=== PATIENT | male | born 1995 | race Two or more races ===

== ENCOUNTER 2018-06-08 17:01 | Inpatient (IN) | payer BC, MEDICAID ==
[~2018-06-08] VITALS: Ht 177.8 cm; Wt 63.4 kg
[2018-06-08 18:22] LABS: Basophils # (auto) 0 uL; Basophils % (auto) 0.5 % (0.0-2.0); Eosinophils # (auto) 0 uL; Eosinophils % (auto) 0.1 % (0.0-7.0); Hematocrit 45.1 % (41.0-53.0); Hemoglobin 14.8 g/dL (13.5-17.5); Lymphocytes # (auto) 1.2 uL; Lymphocytes % (auto) 15.3 % (10.0-50.0); Mean Corpuscular Hemoglobin 30.8 pg (28.0-32.0); Mean Corpuscular Hgb Conc. 32.8 g/dL (32.0-36.0); Mean Corpuscular Volume 93.9 fL (80.0-100.0); Monocytes # (auto) 0.4 uL; Monocytes % (auto) 5.5 % (0.0-12.0); Neutrophils # (auto) 6.4 uL; Neutrophils % (auto) 78.6 % (37.0-80.0); Nucleated Red Blood Cells % 0.1 %; Platelet Count (auto) 273 10^3/uL (140-450); Red Cell Distribution Width 13.4 % (11.8-14.3); White Blood Cell 8.1 10^3/uL (4.4-10.8)
[2018-06-08 18:48] LABS: Albumin 3.9 g/dL (3.4-5.0); Calcium 9.4 mg/dL (8.5-10.1); Potassium 4.3 mmol/L (3.5-5.1)
[2018-06-08 18:51] LABS: BUN/Creatinine Ratio 23.4; Bilirubin, Total 0.5 mg/dL (0.2-1.0); Total Protein 7.5 g/dL (6.4-8.2)
[2018-06-08] MEDS: SODIUM CHLORIDE 0.9% 1,000 ML IV SCH ×2 (21:11→23:11)
[2018-06-08] MEDS ORDERED: InsuLIN R (HUMAN) 100 UNITS in SODIUM CHL 0.9% 99 ML IV SCH (21:11)
[2018-06-08] MEDS ORDERED: DEXTROSE (50%) 50ML SYRG IV PRN (21:15)
[2018-06-08] MEDS ORDERED: POTASSIUM CHL 20MEQ/100ML 200 ML IV PRN (21:15)
[2018-06-08] MEDS ORDERED: InsuLIN REG 1unit/0.01ml Soln (100units/ml) ONE (21:45)
[2018-06-08 22:04] LABS: Basophils # (auto) 0 uL; Basophils % (auto) 0.2 % (0.0-2.0); Eosinophils # (auto) 0 uL; Hematocrit 45.7 % (41.0-53.0); Hemoglobin 15.3 g/dL (13.5-17.5); Lymphocytes # (auto) 1.4 uL; Lymphocytes % (auto) 16.3 % (10.0-50.0); Mean Corpuscular Hemoglobin 30.8 pg (28.0-32.0); Mean Corpuscular Hgb Conc. 33.4 g/dL (32.0-36.0); Mean Corpuscular Volume 92.1 fL (80.0-100.0); Monocytes # (auto) 0.8 uL; Monocytes % (auto) 9.1 % (0.0-12.0); Neutrophils # (auto) 6.4 uL; Neutrophils % (auto) 74.4 % (37.0-80.0); Nucleated Red Blood Cells % 0.1 %; Platelet Count (auto) 275 10^3/uL (140-450); Red Blood Cells 4.97 10^6/uL (4.5-5.90); Red Cell Distribution Width 13.3 % (11.8-14.3); White Blood Cell 8.6 10^3/uL (4.4-10.8)
[2018-06-08] MEDS: ACCU-CHEK COMFORT CURVE STRIP VI SCH ×2 (22:17→23:54)
[2018-06-08 22:21] LABS: BUN/Creatinine Ratio 28.2; Magnesium 2.1 mg/dL (1.6-2.6); Phosphorus 4.3 mg/dL (2.5-4.90); Potassium 4.2 mmol/L (3.5-5.1)
[2018-06-08 23:06] LABS: Urine Bacteria FEW /hpf (None Seen); Urine Blood Negative /uL (Negative); Urine Specific Gravity 1.019 (1.001-1.035); Urine WBC 15 /hpf (0 - 3)
[2018-06-09] MEDS: D5W/SOD CHLO 0.9% 1,000 ML IV SCH ×5 (00:15→17:43)
[2018-06-09] MEDS ORDERED: DEXTROSE (50%) 50ML SYRG IV PRN (00:15)
[2018-06-09] MEDS ORDERED: ONDANSETRON HCL 4 MG/2 ML VIAL IV PRN (02:15)
[2018-06-09] MEDS ORDERED: ACETAMINOPHEN 500 MG TAB PO PRN (02:15)
[2018-06-09] MEDS ORDERED: ELECTROLYTE 1000ML ORAL SOLN PO ONE (03:15)
[2018-06-09] MEDS: ACCU-CHEK COMFORT CURVE STRIP VI SCH ×5 (03:53→20:29)
[2018-06-09] MEDS: InsuLIN REG 1unit/0.01ml Soln (100units/ml) SC SCH ×5 (04:00→20:28)
[2018-06-09 07:48] LABS: BUN/Creatinine Ratio 28.1; Calcium 8.8 mg/dL (8.5-10.1); Potassium 4.4 mmol/L (3.5-5.1)
[2018-06-09] MEDS: cefTRIAXone 1GM/50ML D5W 50 ML IV SCH (08:31)
[2018-06-09 10:11] LABS: BUN/Creatinine Ratio 23.2; Potassium 3.8 mmol/L (3.5-5.1)
[2018-06-09 15:42] LABS: BUN/Creatinine Ratio 19.8; Calcium 8.4 mg/dL (8.5-10.1)
--- NOTE | 2018-06-09 18:45 | NUR ---
MS admit from [facility] admitted to [facility] after SBAR received. Patient oriented to COLE MCNEAL, primary RN, unit, room, bed, and unit policies regarding patient care and visiting hours. Patient is alert and awake with even and unlabored respirations. No S/S of distress/SOB or pain at this time. Bed is in lowest position, wheels are locked, side rails up x2, and call light is within reach. Patient weighed by bed scale and encouraged to call if they need something. All questions and concerns addressed, patient verbalized understanding.
--- NOTE | 2018-06-09 18:58 | NUR ---
Patient out to smoke ABBY GIBBS states they want to leave the floor Against Medical Advice (AMA) to go outside and smoke. Patient encouraged to stay on floor and not smoke. FRANSISCO morrison notified of patient's wishes. Patient advised of the risks and benefits of leaving AMA to smoke. Patient verbalized understanding and signed required AMA form.
[2018-06-09 18:59] VITALS: BP 137/85
--- NOTE | 2018-06-09 19:20 | NUR ---
Closing Note Patient currently ama to smoke. No S/S of distress/SOB or pain. Care endorsed to Kathi MALIK.
[2018-06-09] MEDS ORDERED: INSDRIP IV (20:47)
[2018-06-09] MEDS ORDERED: INSLANTI SC (20:47)
[2018-06-09 22:00] VITALS: BP 149/92
[2018-06-10] MEDS: ACCU-CHEK COMFORT CURVE STRIP VI SCH ×4 (00:46→12:11)
[2018-06-10] MEDS: InsuLIN REG 1unit/0.01ml Soln (100units/ml) SC SCH ×4 (00:46→12:09)
[2018-06-10 05:00] VITALS: BP 142/86
--- NOTE | 2018-06-10 07:45 | NUR ---
Opening Shift Note Assumed care of patient, Patient awake and alert sitting up quietly in bed. Patient is on room air with even and unlabored respirations. No S/S of distress/SOB or pain noted at this time. Bed is in lowest position, wheels are locked, side rails up x2, and call light is within reach. Patient updated on POC and encouraged to call for assistance as needed. Will continue to monitor for changes Q1hr and PRN.
[2018-06-10 08:00] VITALS: BP 142/86
--- NOTE | 2018-06-10 08:10 | NUR ---
Patient outside to smoke ABBY GIBBS states they want to leave the floor Against Medical Advice (AMA) to go outside and smoke. Patient encouraged to stay on floor and not smoke. FRANSISCO Smith previously notified of patient's wishes. Patient advised of the risks and benefits of leaving AMA. Patient verbalized understanding and signed required AMA form.
[2018-06-10 09:00] VITALS: BP 140/85
[2018-06-10] MEDS: cefTRIAXone 1GM/50ML D5W 50 ML IV SCH (09:18)
--- NOTE | 2018-06-10 12:00 | NUR ---
ELEVATED BLOOD PRESSURE BLOOD PRESSURE ELEVATED AT 160/91 HR 109. PATIENT ASYMPTOMATIC. ZAFAR MENON INFORMED AND STATED WILL LOOK INTO IT. WILL REASSESS BLOOD PRESSURE. PATIENT ASKING TO GO DOWN TO SMOKE. ADVISED PATIENT NOT TO BLOOD PRESSURE IS ELEVATED AND SMOKING WILL RAISE IT EVEN MORE. WILL CONTINUE TO MONITOR.
[2018-06-10 12:30] VITALS: BP 166/102
[2018-06-10 13:09] VITALS: BP 170/100
--- NOTE | 2018-06-10 13:09 | NUR ---
BLOOD PRESSURE REASSESS RECHECKED BLOOD PRESSURE, STILL REMAINS ELEVATED AT 170/100 HR 111. ZAFAR MENON INFORMED AGAIN. RECEIVED TELEPHONE ORDER FOR CLONIDINE 0.2 MG PO ONCE NOW. ORDERS CARRIED OUT. PATIENT ALSO EXPRESSING SOME CONCERNS ABOUT WANTING TO LEAVE AGAINST MEDICAL ADVISE. PATIENT STRONGLY DISCOURAGED D/T ELEVATED BLOOD PRESSURE AND EDUCATED RE: RISKS OF LEAVING AGAINST MEDICAL ADVISE. PATIENT STATING HE WILL WAIT A LITTLE BIT. WILL CONTINUE TO MONITOR.
--- NOTE | 2018-06-10 13:30 | NUR ---
PATIENT REFUSING BLOOD PRESSURE MEDICATION PATIENT REFUSING BLOOD PRESSURE MEDICATION HE STATED HE DOESNT WANT TO STAY THAT LONG TO GET IT RECHECKED. CONTINUED TO EDUCATE PATIENT RE: THE RISKS OF HIGH BLOOD PRESSURE WHICH ARE NOT LIMITED TO STROKE, COMA, OR . PATIENT VERBALIZED UNDERSTANDING AND STILL EXPRESSING WHICH TO LEAVE AMA. WILL DISCUSS WITH MD AND HAVE PATIENT SIGN. WILL CONTINUE TO MONITOR.
--- NOTE | 2018-06-10 13:40 | NUR ---
AMA Note [facility]BBY GIBBS states they want to leave the hospital Against Medical Advice (AMA). Patient encouraged to stay for further treatment/stabilization. DR. Mejía notified of patient's wishes. Patient advised of the risks and benefits of leaving AMA which can include stroke, coma or . Patient verbalized understanding. Patient encouraged to return to the ER if symptoms do not improve or worsen.
== END 2018-06-10 14:10 | disposition left against medical advice (07) | DRG 689 ==
LOC: ER 17:07 → TELE-EAST 06-09 19:36
PROVIDERS: ADMIT Nurse Practitioner Family; ATTEND Family Medicine
DX: N39.0 Urinary tract infection, site not specified (principal); E10.10 Type 1 diabetes mellitus with ketoacidosis without coma; F17.210 Nicotine dependence, cigarettes, uncomplicated; E86.0 Dehydration; Z53.21 Procedure and treatment not carried out due to patient leaving prior to being seen by health care provider; Z79.4 Long term (current) use of insulin
CPT/HCPCS: 36415; 36600; 71045; 80048; 80053; 81001; 82010; 82805; 82962; 83036; 83735; 83930; 84100; 85025; 87086; 93005; 96361; 96365; 96372; G0378; J0696; J1815; J7042

== ENCOUNTER 2020-02-29 19:28 | Emergency (ER) | payer BC, MEDICAID ==
[~2020-02-29] VITALS: Ht 170.2 cm; Wt 61.2 kg
[~2020-02-29 19:28] MED LIST: INSDRIP IV; INSLANTI SC
[2020-02-29 19:31] VITALS: BP 103/72
== END 2020-02-29 23:30 | disposition left against medical advice (07) ==
LOC: ER 19:28
DX: R07.89 Other chest pain (principal); Z53.21 Procedure and treatment not carried out due to patient leaving prior to being seen by health care provider
CPT/HCPCS: 71045; 82010; 82962; 84484

== ENCOUNTER 2020-11-28 16:12 | Inpatient (IN) | payer BC, MEDICAID ==
[~2020-11-28] VITALS: Ht 170.2 cm; Wt 71.0 kg
[2020-11-28] MEDS ORDERED: DEXTROSE (50%) 50ML SYRG IV PRN (16:30)
[2020-11-28] MEDS ORDERED: INSULIN LANTUS (GLARGINE) 1 /0.01ml (100units/ml) SC ONE (16:30)
[2020-11-28] MEDS ORDERED: ONDANSETRON HCL 4 MG/2 ML VIAL IV ONE (16:30)
[2020-11-28 16:58] LABS: Basophils # (auto) 0.2 10 ^3/uL (0-0.2); Eosinophils # (auto) 0 10 ^3/uL (0-0.8); Hemoglobin 9.4 g/dL (13.5-17.5); Mean Corpuscular Hemoglobin 27.6 pg (28.0-32.0)
[2020-11-28 17:00] LABS: Basophils % (auto) 0.8 % (0.0-2.0); Hematocrit 28.2 % (41.0-53.0); Lymphocytes # (auto) 2.2 10 ^3/uL (0.4-5.4); Lymphocytes % (auto) 10.1 % (10.0-50.0); Mean Corpuscular Hgb Conc. 33.2 g/dL (32.0-36.0); Mean Corpuscular Volume 83.3 fL (80.0-100.0); Monocytes # (auto) 1.5 10 ^3/uL (0-1.3); Monocytes % (auto) 7.1 % (0.0-12.0); Neutrophils # (auto) 17.4 10 ^3/uL (1.6-8.6); Red Blood Cells 3.39 10^6/uL (4.5-5.90); Red Cell Distribution Width 14.1 % (11.8-14.3); White Blood Cell 21.3 10^3/uL (4.4-10.8)
[2020-11-28 17:15] LABS: BUN/Creatinine Ratio 17.2; Calcium 8.7 mg/dL (8.5-10.1); Phosphorus 2.6 mg/dL (2.5-4.90); Potassium 4.6 mmol/L (3.5-5.1)
[2020-11-28] MEDS: SODIUM CHLORIDE 0.9% 1,000 ML IV SCH ×3 (17:30→22:30)
[2020-11-28] MEDS: ACCU-CHEK COMFORT CURVE STRIP VI SCH ×5 (18:42→22:30)
[2020-11-28] MEDS ORDERED: ACETAMINOPHEN 650 mg PER 20.3 mL UD PO ONE (19:00)
[2020-11-28] MEDS: InsuLIN R (HUMAN) 100 UNITS in SODIUM CHL 0.9% 99 ML IV SCH ×2 (20:17→21:00)
[2020-11-28] MEDS ORDERED: SODIUM CHLORIDE 0.9% 1,000 ML IV SCH (20:30)
[2020-11-28] MEDS ORDERED: ONDANSETRON HCL 4 MG/2 ML VIAL IV PRN (22:45)
[2020-11-28] MEDS ORDERED: MORPHINE SULFATE INJECTION 2 MG/ML SYRG IV PRN (22:45)
[2020-11-28] MEDS ORDERED: NITROGLYCERIN 0.4 MG SL TAB SL PRN (22:45)
[2020-11-29] MEDS: ACCU-CHEK COMFORT CURVE STRIP VI SCH ×11 (00:18→21:52)
[2020-11-29 01:34] LABS: Amphetamine Screen, Urine NEGATIVE (NEGATIVE); Barbiturate Scree,Urine NEGATIVE (NEGATIVE); Benzodiazephine Screen, Urine NEGATIVE (NEGATIVE); Cannabinoid Screen, Urine POSITIVE (NEGATIVE); Cocaine Screen, Urine NEGATIVE (NEGATIVE); Opiate Scree,Urine NEGATIVE (NEGATIVE); Phencyclidine Screen, Urine NEGATIVE (NEGATIVE)
[2020-11-29 01:39] LABS: Urine Bacteria FEW /hpf (None Seen); Urine Blood 1+ /uL (Negative); Urine Mucus FEW (None Seen); Urine WBC 69 /hpf (0 - 3); Urine WBC Clumps PRESENT /hpf (None Seen)
[2020-11-29] MEDS: SODIUM CHLORIDE 0.9% 1,000 ML IV SCH ×3 (05:10→21:07)
[2020-11-29 07:55] LABS: Basophils # (auto) 0.1 10 ^3/uL (0-0.2); Eosinophils # (auto) 0 10 ^3/uL (0-0.8); Lymphocytes # (auto) 1.3 10 ^3/uL (0.4-5.4); Mean Corpuscular Hgb Conc. 32.7 g/dL (32.0-36.0); Monocytes # (auto) 1.3 10 ^3/uL (0-1.3); Neutrophils # (auto) 15.6 10 ^3/uL (1.6-8.6); White Blood Cell 18.3 10^3/uL (4.4-10.8)
[2020-11-29 07:57] LABS: Basophils % (auto) 0.6 % (0.0-2.0); Hematocrit 29.4 % (41.0-53.0); Hemoglobin 9.6 g/dL (13.5-17.5); Lymphocytes % (auto) 7.1 % (10.0-50.0); Mean Corpuscular Hemoglobin 27.3 pg (28.0-32.0); Mean Corpuscular Volume 83.5 fL (80.0-100.0); Monocytes % (auto) 7.1 % (0.0-12.0); Neutrophils % (auto) 85.2 % (37.0-80.0); Red Blood Cells 3.52 10^6/uL (4.5-5.90); Red Cell Distribution Width 14.3 % (11.8-14.3)
[2020-11-29 08:15] LABS: Calcium 8.4 mg/dL (8.5-10.1); Potassium 4.4 mmol/L (3.5-5.1)
[2020-11-29 08:19] LABS: Bilirubin, Total 0.3 mg/dL (0.2-1.0); Total Protein 7.2 g/dL (6.4-8.2)
[2020-11-29] MEDS ORDERED: DEXTROSE (50%) 50ML SYRG IV PRN (09:30)
[2020-11-29] MEDS ORDERED: INSULIN LANTUS (GLARGINE) 1 /0.01ml (100units/ml) SC SCH (10:00)
[2020-11-29] MEDS ORDERED: PANTOPRAZOLE 40 MG/10 ML VIAL INJ IV SCH (10:00)
[2020-11-29] MEDS: levoFLOXacin 500MG 100 ML IV SCH (11:23)
[2020-11-29] MEDS: InsuLIN REG 1unit/0.01ml Soln (100units/ml) SC SCH ×2 (11:34→16:29)
[2020-11-29] MEDS: metroNIDAZOLE 500MG/100ML 100 ML IV SCH ×2 (12:31→20:06)
[2020-11-29 17:00] VITALS: BP 108/65
[2020-11-29] MEDS: SUCRALFATE 1 GM/10 ML ORAL SUSP PO SCH ×2 (17:43→21:08)
[2020-11-29] MEDS: PANTOPRAZOLE 40 MG/10 ML VIAL INJ IV SCH (21:08)
[2020-11-29 22:00] VITALS: BP 94/71
[2020-11-29] MEDS ORDERED: InsuLIN REG 1unit/0.01ml Soln (100units/ml) SC SCH (22:00)
[2020-11-30] MEDS: metroNIDAZOLE 500MG/100ML 100 ML IV SCH ×2 (04:07→12:24)
[2020-11-30 05:00] VITALS: BP 152/90
[2020-11-30 06:36] LABS: Basophils # (auto) 0 10 ^3/uL (0-0.2); Basophils % (auto) 0.4 % (0.0-2.0); Eosinophils # (auto) 0.1 10 ^3/uL (0-0.8); Eosinophils % (auto) 0.8 % (0.0-7.0); Hematocrit 25.9 % (41.0-53.0); Hemoglobin 8.6 g/dL (13.5-17.5); Lymphocytes # (auto) 1.7 10 ^3/uL (0.4-5.4); Lymphocytes % (auto) 17.3 % (10.0-50.0); Mean Corpuscular Hgb Conc. 33.2 g/dL (32.0-36.0); Mean Corpuscular Volume 84.3 fL (80.0-100.0); Monocytes # (auto) 1.2 10 ^3/uL (0-1.3); Monocytes % (auto) 12.4 % (0.0-12.0); Neutrophils # (auto) 6.8 10 ^3/uL (1.6-8.6); Neutrophils % (auto) 69.1 % (37.0-80.0); Red Blood Cells 3.07 10^6/uL (4.5-5.90); Red Cell Distribution Width 14.1 % (11.8-14.3); White Blood Cell 9.9 10^3/uL (4.4-10.8)
[2020-11-30] MEDS: ACCU-CHEK COMFORT CURVE STRIP VI SCH ×2 (06:42→11:46)
[2020-11-30] MEDS: InsuLIN REG 1unit/0.01ml Soln (100units/ml) SC SCH ×2 (06:43→11:47)
[2020-11-30] MEDS: SUCRALFATE 1 GM/10 ML ORAL SUSP PO SCH ×3 (06:43→17:00)
[2020-11-30 06:57] LABS: BUN/Creatinine Ratio 20.5; Potassium 4.4 mmol/L (3.5-5.1)
[2020-11-30 09:00] VITALS: BP 147/87
[2020-11-30] MEDS: levoFLOXacin 500MG 100 ML IV SCH (10:24)
[2020-11-30] MEDS: PANTOPRAZOLE 40 MG/10 ML VIAL INJ IV SCH (10:24)
[2020-11-30] MEDS: SODIUM CHLORIDE 0.9% 1,000 ML IV SCH ×2 (10:24→17:00)
[2020-11-30] MEDS ORDERED: INSULIN LANTUS (GLARGINE) 1 /0.01ml (100units/ml) SC ONE (12:15)
[2020-11-30] MEDS ORDERED: DEXTROSE (50%) 50ML SYRG IV PRN (12:15)
[2020-11-30 13:00] VITALS: BP 122/76
[2020-11-30 15:12] LABS: % Iron Saturation 16.9 % (20-55)
[2020-11-30] MEDS ORDERED: LEVO500T31 PO (15:19)
[2020-11-30] MEDS ORDERED: SUCR1SUS10 PO (15:19)
[2020-11-30] MEDS ORDERED: INSLANTI SC (15:19)
[2020-11-30] MEDS ORDERED: PANT40TA2 PO (15:19)
[2020-11-30] MEDS ORDERED: INSDRIP IV (15:19)
[2020-11-30 15:21] LABS: Ferritin 118.7 ng/mL (10-322); Folate (Folic Acid) 16.82 ng/mL (5.38-24)
[2020-11-30 15:58] LABS: BUN/Creatinine Ratio 21.4; Calcium 8.3 mg/dL (8.5-10.1); Potassium 4.5 mmol/L (3.5-5.1)
[2020-11-30] MEDS ORDERED: InsuLIN REG 1unit/0.01ml Soln (100units/ml) SC SCH (16:00)
[2020-11-30] MEDS ORDERED: ACCU-CHEK COMFORT CURVE STRIP VI SCH (16:00)
[2020-11-30 16:35] VITALS: BP 130/88
[2020-11-30] MEDS ORDERED: DOCUSATE SOD 100 MG CAP PO PRN (16:45)
[2020-11-30] MEDS ORDERED: FERROUS SULFATE 325mg EC TAB PO SCH (18:00)
[2020-11-30] MEDS ORDERED: INSULIN LANTUS (GLARGINE) 1 /0.01ml (100units/ml) SC SCH (22:00)
[2020-12-01] MEDS ORDERED: INSULIN LANTUS (GLARGINE) 1 /0.01ml (100units/ml) SC SCH (10:00)
== END 2020-11-30 18:55 | disposition home or self-care (01) | DRG 422 ==
LOC: ER 16:12 → TELE 22:41 → TELE-WESTW 11-29 17:09 → WEST WING 11-29 17:30
PROVIDERS: ADMIT Nurse Practitioner; ATTEND Internal Medicine
DX: E86.0 Dehydration (principal); E11.10 Type 2 diabetes mellitus with ketoacidosis without coma; E44.0 Moderate protein-calorie malnutrition; K92.0 Hematemesis; D64.9 Anemia, unspecified; Z20.822 Contact with and (suspected) exposure to COVID-19; F12.90 Cannabis use, unspecified, uncomplicated; F17.210 Nicotine dependence, cigarettes, uncomplicated; N39.0 Urinary tract infection, site not specified; Z72.89 Other problems related to lifestyle; F15.10 Other stimulant abuse, uncomplicated
CPT/HCPCS: 36415; 36600; 74176; 80048; 80053; 80307; 81001; 82010; 82607; 82728; 82746; 82805; 82962; 83036; 83540; 83550; 83615; 83735; 83930; 84100; 85025; 85045; 86880; 86885; 87040; 87426; 96361; 96365; 96366; 96367; 96372; 96375; 99291; C9113; G0378; J1815; J1956; J3490

== ENCOUNTER 2020-12-28 09:23 | Inpatient (IN) | payer MEDICAID ==
[~2020-12-28] VITALS: Ht 170.2 cm; Wt 59.3 kg
[~2020-12-28 09:23] MED LIST changes: +LEVO500T31 PO; +PANT40TA2 PO; +SUCR1SUS10 PO
[2020-12-28 10:13] LABS: Basophils # (auto) 0 10 ^3/uL (0-0.2); Basophils % (auto) 0.2 % (0.0-2.0); Eosinophils # (auto) 0 10 ^3/uL (0-0.8); Eosinophils % (auto) 0.2 % (0.0-7.0); Hematocrit 36.7 % (41.0-53.0); Lymphocytes # (auto) 2.1 10 ^3/uL (0.4-5.4); Lymphocytes % (auto) 14.9 % (10.0-50.0); Mean Corpuscular Hgb Conc. 32.8 g/dL (32.0-36.0); Mean Corpuscular Volume 85.2 fL (80.0-100.0); Monocytes # (auto) 1.5 10 ^3/uL (0-1.3); Monocytes % (auto) 10.9 % (0.0-12.0); Neutrophils # (auto) 10.4 10 ^3/uL (1.6-8.6); Neutrophils % (auto) 73.8 % (37.0-80.0); Red Cell Distribution Width 15.9 % (11.8-14.3); White Blood Cell 14.1 10^3/uL (4.4-10.8)
[2020-12-28 10:27] LABS: Urine Bacteria FEW /hpf (None Seen); Urine Blood 2+ /uL (Negative); Urine WBC 105 /hpf (0 - 3)
[2020-12-28 10:30] LABS: Albumin 3.3 g/dL (3.4-5.0); Calcium 9.5 mg/dL (8.5-10.1); Potassium 4.6 mmol/L (3.5-5.1)
[2020-12-28 10:33] LABS: Amphetamine Screen, Urine NEGATIVE (NEGATIVE); Barbiturate Scree,Urine NEGATIVE (NEGATIVE); Cannabinoid Screen, Urine POSITIVE (NEGATIVE)
[2020-12-28 10:35] LABS: BUN/Creatinine Ratio 12.2; Bilirubin, Total 0.4 mg/dL (0.2-1.0); Total Protein 8.5 g/dL (6.4-8.2)
[2020-12-28 10:42] LABS: Benzodiazephine Screen, Urine NEGATIVE (NEGATIVE); Cocaine Screen, Urine NEGATIVE (NEGATIVE); Opiate Scree,Urine NEGATIVE (NEGATIVE); Phencyclidine Screen, Urine NEGATIVE (NEGATIVE)
[2020-12-28] MEDS ORDERED: SODIUM CHLORIDE 0.9% 1,000 ML IV ONE (12:15)
[2020-12-28] MEDS ORDERED: SODIUM CHLORIDE 0.9% 500 ML IV ONE (12:15)
[2020-12-28] MEDS ORDERED: cefTRIAXone 1GM/50ML D5W 50 ML IV ONE (12:15)
[2020-12-28] MEDS ORDERED: hydrALAZINE HCL 20 MG/ML VL IV PRN (21:15)
[2020-12-28] MEDS ORDERED: ONDANSETRON HCL 4 MG/2 ML VIAL IV PRN (21:15)
[2020-12-28] MEDS ORDERED: ACETAMINOPHEN 325 MG TAB PO PRN (21:15)
[2020-12-28] MEDS ORDERED: HYDROcodone-ACET 5/325MG TAB PO PRN (21:15)
[2020-12-28] MEDS: SODIUM CHLORIDE 0.9% 1,000 ML IV SCH (21:44)
[2020-12-29] MEDS ORDERED: INSUINJ18 SC (01:07)
[2020-12-29] MEDS ORDERED: ONDA-144 PO (01:07)
[2020-12-29] MEDS ORDERED: INSLANTI SC (01:07)
[2020-12-29] MEDS ORDERED: AMOX500T86 PO (01:07)
[2020-12-29 01:09] VITALS: BP 145/90
[2020-12-29 05:00] VITALS: BP 145/90
[2020-12-29] MEDS: SODIUM CHLORIDE 0.9% 1,000 ML IV SCH ×2 (05:11→13:15)
[2020-12-29 06:49] LABS: Basophils # (auto) 0 10 ^3/uL (0-0.2); Basophils % (auto) 0.2 % (0.0-2.0); Eosinophils # (auto) 0.1 10 ^3/uL (0-0.8); Eosinophils % (auto) 1.3 % (0.0-7.0); Hemoglobin 11.7 g/dL (13.5-17.5); Lymphocytes # (auto) 1.8 10 ^3/uL (0.4-5.4); Mean Corpuscular Hemoglobin 28.9 pg (28.0-32.0); Mean Corpuscular Hgb Conc. 33.3 g/dL (32.0-36.0); Mean Corpuscular Volume 86.8 fL (80.0-100.0); Monocytes # (auto) 1.1 10 ^3/uL (0-1.3); Monocytes % (auto) 13.8 % (0.0-12.0); Neutrophils # (auto) 4.8 10 ^3/uL (1.6-8.6); Neutrophils % (auto) 61.7 % (37.0-80.0); Nucleated Red Blood Cells % 0.1 %; Red Blood Cells 4.04 10^6/uL (4.5-5.90); Red Cell Distribution Width 15.7 % (11.8-14.3); White Blood Cell 7.7 10^3/uL (4.4-10.8)
[2020-12-29 07:09] LABS: Albumin 2.9 g/dL (3.4-5.0); Calcium 8.9 mg/dL (8.5-10.1); Potassium 4.7 mmol/L (3.5-5.1)
[2020-12-29 07:18] LABS: BUN/Creatinine Ratio 17.3; Bilirubin, Total 0.3 mg/dL (0.2-1.0); Total Protein 7.7 g/dL (6.4-8.2)
[2020-12-29 09:00] VITALS: BP 164/95
[2020-12-29] MEDS ORDERED: cefTRIAXone 1GM/50ML D5W 50 ML IV SCH (10:00)
[2020-12-29] MEDS ORDERED: ENOXAPARIN SOD 40 MG/0.4 ML SYRINGE SC SCH (10:00)
[2020-12-29] MEDS ORDERED: PANTOPRAZOLE 40 MG TAB PO SCH (10:00)
[2020-12-29] MEDS ORDERED: DEXTROSE (50%) 50ML SYRG IV PRN (11:00)
[2020-12-29] MEDS ORDERED: INSULIN LANTUS (GLARGINE) 1 /0.01ml (100units/ml) SC ONE (11:00)
[2020-12-29] MEDS ORDERED: POLYETHYLENE GLYCOL 17 GM PWDR PO PRN (11:30)
[2020-12-29] MEDS: ACCU-CHEK COMFORT CURVE STRIP VI SCH ×2 (12:03→16:40)
[2020-12-29] MEDS: InsuLIN REG 1unit/0.01ml Soln (100units/ml) SC SCH ×2 (12:04→16:41)
[2020-12-29 12:59] VITALS: BP 131/85
[2020-12-29 17:00] VITALS: BP 153/98
[2020-12-29] MEDS ORDERED: LEVO500T31 PO (18:50)
[2020-12-30] MEDS ORDERED: INSULIN LANTUS (GLARGINE) 1 /0.01ml (100units/ml) SC SCH (10:00)
== END 2020-12-29 19:01 | disposition home or self-care (01) | DRG 463 ==
LOC: ER 09:23 → OVERFLOW 21:15 → WEST WING 23:35
PROVIDERS: ADMIT Internal Medicine; ATTEND Internal Medicine
DX: N30.90 Cystitis, unspecified without hematuria (principal); E10.10 Type 1 diabetes mellitus with ketoacidosis without coma; E44.1 Mild protein-calorie malnutrition; F12.90 Cannabis use, unspecified, uncomplicated; F17.210 Nicotine dependence, cigarettes, uncomplicated; Z20.822 Contact with and (suspected) exposure to COVID-19; K56.41 Fecal impaction; Z68.20 Body mass index [BMI] 20.0-20.9, adult; Z79.4 Long term (current) use of insulin; Z82.49 Family history of ischemic heart disease and other diseases of the circulatory system; Z83.3 Family history of diabetes mellitus
CPT/HCPCS: 36415; 71046; 74176; 80053; 80307; 81001; 82962; 85025; 87040; 87086; 87088; 87186; 87426; 96365; 96366; 96372; G0378; J0696; J1815

== ENCOUNTER 2022-11-28 05:58 | Inpatient (IN) | payer MEDICAID ==
[~2022-11-28] VITALS: Ht 170.2 cm; Wt 65.9 kg
[2022-11-28] VITALS (12 sets, daily range): BP systolic 92–153; BP diastolic 45–69; PULSE 88–115; RESP 14–19; TEMP 94.7–98.7; O2SAT 96–100
[~2022-11-28 05:58] MED LIST changes: +ONDA-144 PO; -SUCR1SUS10 PO; +SUCR1SUS26 PO
[2022-11-28] MEDS ORDERED: InsuLIN REG 1unit/0.01ml Soln (100units/ml) IV ONE (07:00)
[2022-11-28] MEDS ORDERED: SODIUM CHLORIDE 0.9% 1,000 ML IV ONE ×2 (07:00)
[2022-11-28 07:03] LABS: Urine Bacteria NONE SEEN /hpf (None Seen); Urine Blood TRACE /uL (Negative); Urine Clarity Clear (Clear); Urine Hyaline Cast FEW /lpf (0 - 2); Urine Protein, UAD 1+ (Negative); Urine Specific Gravity 1.014 (1.001-1.035); Urine Urobilinogen Normal (Negative); Urine WBC 1 /hpf (0 - 3); Urine pH 5.5 (5.0-8.0)
[2022-11-28 07:13] LABS: Urine Color Straw (Yellow)
[2022-11-28 07:38] LABS: Alanine Aminotransferase 17 U/L (7-40); Albumin 4.1 g/dL (3.2-4.8); Alkaline Phosphatase 76 U/L (46-116); Anion Gap 27.00001 (5-15); Aspartate Aminotransferase 17 U/L (13-40); BUN/Creatinine Ratio 17.8 (10.0-20.0); Blood Urea Nitrogen 26 mg/dL (9-23); Calcium 9.7 mg/dL (8.5-10.1); Chloride 96 mmol/L (98-107); Potassium 5.5 mmol/L (3.5-5.1); Sodium 133 mmol/L (136-145)
[2022-11-28 07:38] LABS: Base Excess -19.7 mmol/L (-2.0-2.0)
[2022-11-28 07:39] LABS: Bilirubin, Total 0.6 mg/dL (0.2-1.0); Total Protein 6.7 g/dL (5.7-8.2)
[2022-11-28 07:51] LABS: Carbon Dioxide < 10.0 mmol/L (20-30); Glucose 408 mg/dL (74-106)
[2022-11-28] MEDS ORDERED: SODIUM BICARBONATE 8.4 % INJ 50ML VIAL IV ONE (08:15)
[2022-11-28] MEDS ORDERED: InsuLIN R (HUMAN) 100 UNITS in SODIUM CHL 0.9% 99 ML IV SCH (08:15)
[2022-11-28] MEDS ORDERED: DEXTROSE (50%) 50ML SYRG IV PRN ×2 (08:15→10:30)
[2022-11-28] MEDS ORDERED: INSULIN LANTUS (GLARGINE) 1 /0.01ml (100units/ml) SC ONE (08:15)
[2022-11-28 08:37] LABS: Basophils # (auto) 0 10 ^3/uL (0-0.2); Basophils % (auto) 0.4 % (0.0-2.0); Eosinophils # (auto) 0 10 ^3/uL (0-0.8); Hematocrit 40.5 % (41.0-53.0); Hemoglobin 13.2 g/dL (13.5-17.5); Lymphocytes # (auto) 1.6 10 ^3/uL (0.4-5.4); Lymphocytes % (auto) 12.4 % (10.0-50.0); Mean Corpuscular Hemoglobin 28.9 pg (28.0-32.0); Mean Corpuscular Hgb Conc. 32.6 g/dL (32.0-36.0); Mean Corpuscular Volume 88.7 fL (80.0-100.0); Monocytes # (auto) 0.5 10 ^3/uL (0-1.3); Monocytes % (auto) 3.9 % (0.0-12.0); Neutrophils # (auto) 10.6 10 ^3/uL (1.6-8.6); Neutrophils % (auto) 83.3 % (37.0-80.0); Nucleated Red Blood Cells % 0.1 %; Red Blood Cells 4.57 10^6/uL (4.5-5.90); Red Cell Distribution Width 13.5 % (11.8-14.3); White Blood Cell 12.7 10^3/uL (4.4-10.8)
[2022-11-28] MEDS: ACCU-CHEK COMFORT CURVE STRIP VI SCH ×19 (09:19→22:27)
[2022-11-28] MEDS ORDERED: DOCUSATE SOD 100 MG CAP PO PRN (10:15)
[2022-11-28] MEDS ORDERED: MORPHINE SULFATE INJ 2 MG/ml SYRG IV PRN (10:15)
[2022-11-28] MEDS: SODIUM CHLORIDE 0.9% 1,000 ML IV SCH ×2 (10:15→15:00)
[2022-11-28 11:48] LABS: Base Excess -16.3 mmol/L (-2.0-2.0)
[2022-11-28 12:10] LABS: Anion Gap 25.00001 (5-15); Chloride 103 mmol/L (98-107); Potassium 4.6 mmol/L (3.5-5.1); Sodium 138 mmol/L (136-145)
[2022-11-28 12:11] LABS: Calcium 9.1 mg/dL (8.5-10.1)
[2022-11-28 12:16] LABS: BUN/Creatinine Ratio 13.8 (10.0-20.0); Blood Urea Nitrogen 20 mg/dL (9-23); Magnesium 2.1 mg/dL (1.6-2.6)
[2022-11-28 12:58] LABS: Glucose 287 mg/dL (74-106)
[2022-11-28 12:59] LABS: Carbon Dioxide < 10.0 mmol/L (20-30)
[2022-11-28] MEDS: ONDANSETRON HCL 4 MG/2 ML VIAL IV PRN ×2 (14:30→20:36)
[2022-11-28] MEDS ORDERED: PANTOPRAZOLE 40 MG/10 ML VIAL INJ IV ONE (15:30)
[2022-11-28] MEDS: PIPERACILLIN-TAZOB 3.375GM 100 ML IV SCH ×2 (15:57→23:51)
[2022-11-28] MEDS: METOCLOPRAMIDE HCL 5MG/ml INJ 2ml VIAL IV PRN (15:59)
[2022-11-28 16:37] LABS: Chloride 109 mmol/L (98-107); Potassium 4.8 mmol/L (3.5-5.1); Sodium 143 mmol/L (136-145)
[2022-11-28 16:38] LABS: Anion Gap 20.6 (5-15); Carbon Dioxide 13.4 mmol/L (20-30)
[2022-11-28 16:43] LABS: BUN/Creatinine Ratio 17.4 (10.0-20.0); Blood Urea Nitrogen 24 mg/dL (9-23)
[2022-11-28 16:52] LABS: Glucose 143 mg/dL (74-106)
[2022-11-28] MEDS ORDERED: METOCLOPRAMIDE HCL 5MG/ml INJ 2ml VIAL IV SCH (18:00)
[2022-11-28 22:50] LABS: Chloride 108 mmol/L (98-107); Potassium 4.1 mmol/L (3.5-5.1); Sodium 139 mmol/L (136-145)
[2022-11-28 22:51] LABS: Anion Gap 15.4 (5-15); Calcium 8.6 mg/dL (8.7-10.4); Carbon Dioxide 15.6 mmol/L (20-30)
[2022-11-28 22:56] LABS: BUN/Creatinine Ratio 13.4 (10.0-20.0); Blood Urea Nitrogen 20 mg/dL (9-23); Glucose 165 mg/dL (74-106)
[2022-11-29] VITALS (20 sets, daily range): BP systolic 104–197; BP diastolic 43–114; PULSE 87–104; RESP 8–20; TEMP 98–98.6; O2SAT 97–100
[2022-11-29] MEDS: ACCU-CHEK COMFORT CURVE STRIP VI SCH ×15 (00:12→22:25)
[2022-11-29] MEDS: SODIUM CHLORIDE 0.9% 1,000 ML IV SCH ×3 (03:06→21:00)
[2022-11-29 05:09] LABS: Basophils # (auto) 0 10 ^3/uL (0-0.2); Basophils % (auto) 0.4 % (0.0-2.0); Eosinophils # (auto) 0 10 ^3/uL (0-0.8); Eosinophils % (auto) 0.1 % (0.0-7.0); Hematocrit 33.8 % (41.0-53.0); Hemoglobin 11.5 g/dL (13.5-17.5); Lymphocytes # (auto) 1.5 10 ^3/uL (0.4-5.4); Lymphocytes % (auto) 13.8 % (10.0-50.0); Mean Corpuscular Hemoglobin 29.2 pg (28.0-32.0); Mean Corpuscular Hgb Conc. 33.9 g/dL (32.0-36.0); Mean Corpuscular Volume 86.1 fL (80.0-100.0); Monocytes # (auto) 1.2 10 ^3/uL (0-1.3); Monocytes % (auto) 11.1 % (0.0-12.0); Neutrophils # (auto) 8.1 10 ^3/uL (1.6-8.6); Neutrophils % (auto) 74.6 % (37.0-80.0); Red Blood Cells 3.92 10^6/uL (4.5-5.90); Red Cell Distribution Width 13.6 % (11.8-14.3); White Blood Cell 10.8 10^3/uL (4.4-10.8)
[2022-11-29 05:22] LABS: Alanine Aminotransferase 12 U/L (7-40); Albumin 3.4 g/dL (3.2-4.8); Alkaline Phosphatase 54 U/L (46-116); Anion Gap 12.6 (5-15); Aspartate Aminotransferase 9 U/L (13-40); Blood Urea Nitrogen 16 mg/dL (9-23); Calcium 8.5 mg/dL (8.7-10.4); Carbon Dioxide 18.4 mmol/L (20-30); Chloride 110 mmol/L (98-107); Glucose 126 mg/dL (74-106); Potassium 3.9 mmol/L (3.5-5.1); Sodium 141 mmol/L (136-145)
[2022-11-29 05:23] LABS: Bilirubin, Total 0.5 mg/dL (0.2-1.0); Total Protein 5.7 g/dL (5.7-8.2)
[2022-11-29] MEDS: PIPERACILLIN-TAZOB 3.375GM 100 ML IV SCH (08:21)
[2022-11-29] MEDS ORDERED: INSULIN LANTUS (GLARGINE) 1 /0.01ml (100units/ml) SC SCH ×2 (10:00)
[2022-11-29] MEDS: PANTOPRAZOLE 40 MG/10 ML VIAL INJ IV SCH (10:10)
[2022-11-29] MEDS ORDERED: DEXTROSE (50%) 50ML SYRG IV PRN (10:30)
[2022-11-29] MEDS ORDERED: levoFLOXacin 500MG 100 ML IV ONE (12:00)
[2022-11-29] MEDS: InsuLIN REG 1unit/0.01ml Soln (100units/ml) SC SCH ×3 (13:15→22:27)
[2022-11-29] MEDS: metroNIDAZOLE 500MG/100ML 100 ML IV SCH ×2 (14:24→22:31)
[2022-11-29] MEDS: INSULIN LANTUS (GLARGINE) 1 /0.01ml (100units/ml) SC SCH (22:28)
[2022-11-30] VITALS (7 sets, daily range): BP systolic 148–165; BP diastolic 79–98; PULSE 77–112; RESP 16–18; TEMP 97.8–99; O2SAT 97–99
[2022-11-30] MEDS: hydrALAZINE HCL 20 MG/ML VL IV PRN ×3 (00:29→17:01)
[2022-11-30] MEDS: SODIUM CHLORIDE 0.9% 1,000 ML IV SCH ×2 (04:42→11:45)
[2022-11-30] MEDS: ONDANSETRON HCL 4 MG/2 ML VIAL IV PRN ×4 (04:42→23:41)
[2022-11-30] MEDS: metroNIDAZOLE 500MG/100ML 100 ML IV SCH ×3 (05:31→22:15)
[2022-11-30] MEDS: InsuLIN REG 1unit/0.01ml Soln (100units/ml) SC SCH ×4 (07:00→22:00)
[2022-11-30] MEDS: ACCU-CHEK COMFORT CURVE STRIP VI SCH ×4 (07:01→22:16)
[2022-11-30 07:17] LABS: Basophils # (auto) 0 10 ^3/uL (0-0.2); Basophils % (auto) 0.3 % (0.0-2.0); Eosinophils # (auto) 0.1 10 ^3/uL (0-0.8); Eosinophils % (auto) 1.4 % (0.0-7.0); Hematocrit 36.5 % (41.0-53.0); Hemoglobin 12.2 g/dL (13.5-17.5); Lymphocytes # (auto) 1.7 10 ^3/uL (0.4-5.4); Lymphocytes % (auto) 26.3 % (10.0-50.0); Mean Corpuscular Hgb Conc. 33.3 g/dL (32.0-36.0); Mean Corpuscular Volume 87.2 fL (80.0-100.0); Monocytes # (auto) 0.6 10 ^3/uL (0-1.3); Monocytes % (auto) 8.7 % (0.0-12.0); Neutrophils # (auto) 4.2 10 ^3/uL (1.6-8.6); Neutrophils % (auto) 63.3 % (37.0-80.0); Red Blood Cells 4.19 10^6/uL (4.5-5.90); Red Cell Distribution Width 13.7 % (11.8-14.3); White Blood Cell 6.6 10^3/uL (4.4-10.8)
[2022-11-30 07:45] LABS: Anion Gap 9.1 (5-15); Calcium 8.5 mg/dL (8.5-10.1); Carbon Dioxide 21.9 mmol/L (20-30); Chloride 109 mmol/L (98-107); Potassium 3.4 mmol/L (3.5-5.1); Sodium 140 mmol/L (136-145)
[2022-11-30 07:51] LABS: BUN/Creatinine Ratio 10.7 (10.0-20.0); Blood Urea Nitrogen 9 mg/dL (9-23); Glucose 92 mg/dL (74-106)
[2022-11-30] MEDS: PANTOPRAZOLE 40 MG/10 ML VIAL INJ IV SCH (08:55)
[2022-11-30] MEDS: levoFLOXacin 500MG 100 ML IV SCH (08:59)
[2022-11-30] MEDS: METOCLOPRAMIDE HCL 5MG/ml INJ 2ml VIAL IV PRN ×2 (11:21→18:09)
[2022-11-30] MEDS ORDERED: POTASSIUM CHLORIDE 40 MEQ, LIDOCAINE 1% (LOCAL ANESTH.) 4 ML in SODIUM CHL 0.9% 250 ML IV ONE (11:45)
[2022-11-30] MEDS ORDERED: LISINOPRIL 10 MG TAB PO ONE (11:45)
[2022-11-30] MEDS ORDERED: POTASSIUM CHLORIDE 20 MEQ, LIDOCAINE 1% (LOCAL ANESTH.) 2 ML in SODIUM CHL 0.9% 100 ML IV ONE (17:30)
[2022-11-30] MEDS ORDERED: FUROSEMIDE 20 MG/2 ML VIAL IV ONE (17:30)
[2022-11-30] MEDS: INSULIN LANTUS (GLARGINE) 1 /0.01ml (100units/ml) SC SCH (22:00)
[2022-12-01] VITALS (7 sets, daily range): BP systolic 127–175; BP diastolic 57–92; PULSE 99–114; RESP 17–19; TEMP 98.3–99.6; O2SAT 96–98
[2022-12-01] MEDS: INSULIN LANTUS (GLARGINE) 1 /0.01ml (100units/ml) SC SCH ×2 (00:38→23:23)
[2022-12-01] MEDS: InsuLIN REG 1unit/0.01ml Soln (100units/ml) SC SCH ×5 (00:39→22:00)
[2022-12-01] MEDS: SODIUM CHLORIDE 0.9% 1,000 ML IV SCH ×3 (02:04→23:26)
[2022-12-01] MEDS: METOCLOPRAMIDE HCL 5MG/ml INJ 2ml VIAL IV PRN (02:04)
[2022-12-01] MEDS: metroNIDAZOLE 500MG/100ML 100 ML IV SCH (06:12)
[2022-12-01] MEDS: ACCU-CHEK COMFORT CURVE STRIP VI SCH ×4 (06:48→23:12)
[2022-12-01 06:58] LABS: Chloride 109 mmol/L (98-107); Potassium 3.9 mmol/L (3.5-5.1); Sodium 140 mmol/L (136-145)
[2022-12-01 06:59] LABS: Anion Gap 14.6 (5-15); Carbon Dioxide 16.4 mmol/L (20-30)
[2022-12-01 07:00] LABS: Calcium 8.8 mg/dL (8.7-10.4)
[2022-12-01 07:05] LABS: BUN/Creatinine Ratio 8.3 (10.0-20.0); Blood Urea Nitrogen 9 mg/dL (9-23); Glucose 189 mg/dL (74-106)
[2022-12-01 07:10] LABS: INR 1.03 (0.9-1.15); Partial Thromboplastin Time 26.4 SEC (24.5-34.5); Prothrombin Time 10.8 sec (9.3-11.8)
[2022-12-01 07:38] LABS: Basophils # (auto) 0 10 ^3/uL (0-0.2); Basophils % (auto) 0.2 % (0.0-2.0); Eosinophils # (auto) 0 10 ^3/uL (0-0.8); Hematocrit 35.5 % (41.0-53.0); Lymphocytes % (auto) 15.7 % (10.0-50.0); Mean Corpuscular Hemoglobin 29.5 pg (28.0-32.0); Mean Corpuscular Hgb Conc. 33.7 g/dL (32.0-36.0); Mean Corpuscular Volume 87.5 fL (80.0-100.0); Monocytes # (auto) 0.5 10 ^3/uL (0-1.3); Neutrophils # (auto) 4.7 10 ^3/uL (1.6-8.6); Neutrophils % (auto) 76.1 % (37.0-80.0); Nucleated Red Blood Cells % 0.1 %; Red Blood Cells 4.06 10^6/uL (4.5-5.90); Red Cell Distribution Width 13.6 % (11.8-14.3); White Blood Cell 6.2 10^3/uL (4.4-10.8)
[2022-12-01] MEDS: hydrALAZINE HCL 20 MG/ML VL IV PRN (09:10)
[2022-12-01] MEDS: LISINOPRIL 10 MG TAB PO SCH (10:00)
[2022-12-01] MEDS: levoFLOXacin 500MG 100 ML IV SCH (10:06)
[2022-12-01] MEDS: PANTOPRAZOLE 40 MG/10 ML VIAL INJ IV SCH ×2 (10:06→23:11)
[2022-12-01] MEDS ORDERED: PROPOFOL 10 MG/ML 20 ML IV ONE (14:07)
[2022-12-01] MEDS ORDERED: LIDOCAINE 2% (LOCAL ANESTH.) PF 5ml SDV ONE (14:07)
[2022-12-01] MEDS ORDERED: MET500T PO (15:00)
[2022-12-01] MEDS: SUCRALFATE 1 GM/10 ML ORAL SUSP PO SCH ×2 (17:01→22:00)
[2022-12-01] MEDS: PROMETHAZINE HCL 25 MG/ML 1ML IV PRN (20:54)
[2022-12-01] MEDS: METOCLOPRAMIDE HCL 5MG/ml INJ 2ml VIAL IV SCH (23:12)
[2022-12-02] MEDS ORDERED: diphenhdrAMINE HCL 50 MG/1 ML VL IV PRN
[2022-12-02] MEDS: hydrALAZINE HCL 20 MG/ML VL IV PRN ×2 (04:37→09:48)
[2022-12-02] MEDS: PROMETHAZINE HCL 25 MG/ML 1ML IV PRN (04:43)
[2022-12-02 04:59] VITALS: BP 192/96; PULSE 116; RESP 19; TEMP 98.4; O2SAT 98
[2022-12-02 05:07] VITALS: BP 140/81
[2022-12-02] MEDS: METOCLOPRAMIDE HCL 5MG/ml INJ 2ml VIAL IV SCH ×2 (06:45→13:22)
[2022-12-02] MEDS: SUCRALFATE 1 GM/10 ML ORAL SUSP PO SCH ×2 (06:51→11:30)
[2022-12-02] MEDS: InsuLIN REG 1unit/0.01ml Soln (100units/ml) SC SCH ×2 (06:51→12:02)
[2022-12-02] MEDS: ACCU-CHEK COMFORT CURVE STRIP VI SCH ×2 (06:53→11:55)
[2022-12-02 09:00] VITALS: BP 172/90; PULSE 110; RESP 16; TEMP 97.8; O2SAT 97
[2022-12-02] MEDS: levoFLOXacin 500MG 100 ML IV SCH (09:46)
[2022-12-02] MEDS: PANTOPRAZOLE 40 MG/10 ML VIAL INJ IV SCH (09:48)
[2022-12-02] MEDS: LISINOPRIL 10 MG TAB PO SCH (09:48)
== END 2022-12-02 14:00 | disposition home or self-care (01) | DRG 420 ==
LOC: ER 05:58 → TELE 10:07 → DOU IN ICU 11:11 → WEST WING 11-29 21:04
PROVIDERS: ADMIT Nurse Practitioner Family; ATTEND Internal Medicine
PROC: 0DB68ZX Excision of Stomach, Via Natural or Artificial Opening Endoscopic, Diagnostic (ICD-10-PCS; 2022-12-01)
PROC: 0DB58ZX Excision of Esophagus, Via Natural or Artificial Opening Endoscopic, Diagnostic (ICD-10-PCS; 2022-12-01)
PROC: 0DB98ZX Excision of Duodenum, Via Natural or Artificial Opening Endoscopic, Diagnostic (ICD-10-PCS; principal; 2022-12-01 13:44)
DX: E10.10 Type 1 diabetes mellitus with ketoacidosis without coma (principal); N17.0 Acute kidney failure with tubular necrosis; K22.10 Ulcer of esophagus without bleeding; E87.1 Hypo-osmolality and hyponatremia; E86.0 Dehydration; E87.5 Hyperkalemia; F17.210 Nicotine dependence, cigarettes, uncomplicated; E87.6 Hypokalemia; K44.9 Diaphragmatic hernia without obstruction or gangrene; K31.3 Pylorospasm, not elsewhere classified; K52.9 Noninfective gastroenteritis and colitis, unspecified; Z79.4 Long term (current) use of insulin; Z82.49 Family history of ischemic heart disease and other diseases of the circulatory system; Z83.3 Family history of diabetes mellitus; Z87.442 Personal history of urinary calculi
CPT/HCPCS: 36415; 36600; 74176; 80048; 80053; 81001; 82010; 82805; 82962; 83036; 83690; 83735; 83935; 84100; 85025; 85610; 85730; 87081; 99291; C9113; G0378; J1815; J1956; J2001; J2405; J2543; J2704; J3490

== ENCOUNTER 2024-12-30 18:26 | Emergency (ER) | payer OTHER, MEDICAID ==
[~2024-12-30] VITALS: Ht 170.2 cm; Wt 65.2 kg
[~2024-12-30 18:26] MED LIST changes: +MET500T PO
--- NOTE | 2024-12-30 18:50 | ED.PDOC ---
History of Present Illness HPI Comments 29 y/o M, with a Hx of DM and HTN, is BIBA from private residence with c/c of seizure-like activity. Per EMS personnel report, patient's family called after witnessed the patient having a sudden onset of seizure-like activity of 5x minutes in duration, while in his bed, this evening. No history of seizures in the past. Patient was found on scene in post-ictal state, A&Ox0, and a blood glucose >600. Family reports on patient having difficulty managing his blood glucose over the past few days, lately. En route, patient is stated to have improved to A&Ox3 but became nausea and vomited 1x amidst receiving 4mg Zofran. No further acute symptoms reported. Chief Complaint: Seizure Time Seen by MD: 18:40 Primary Care Provider: SENA Reviewed Notes: Nurses Notes, Block Cutter Notes, Medications, Allergies Allergies: Coded Allergies: NO KNOWN ALLERGIES (Unverified , 11/28/20) Home Meds Active Scripts Metronidazole (Metronidazole) 500 Mg Tab, 500 MG PO TID for 5 Days, #15 TAB Prov:STACY NOBLE DO 12/01/22 Levofloxacin (Levaquin) 500 Mg Tab, 500 MG PO DAILY, #10 MG Prov:NIECY ATKINSON MD 12/29/20 Sucralfate (CARAFATE SUSP) 1 Gm/10 Ml Ss, 1 GM PO QIDACHS, #120 ML Prov:NIECY ATKINSON MD 11/30/20 Pantoprazole Sodium Sesquihydr (Protonix) 40 Mg Tab, 40 MG PO BID, #60 TAB Prov:NIECY ATKINSON MD 11/30/20 Insulin Regular (Human) (Novolin R) 100 Unit/Ml Inj, 0-12 UNIT IV ACHS, #1 INJ 30 Refills Prov:NIECY ATKINSON MD 11/30/20 Reported Medications Insulin Glargine (Lantus) 100 Unit/Ml Inj, 30 UNIT SC, INJ 12/29/20 Ondansetron (Zofran) 4 Mg Tab, 8 MG PO Q8HP, TAB 12/29/20 Information Source: Patient, Emergency Med Personnel Mode of Arrival: EMS Severity: Moderate Timing: Hours Duration: Minutes Prehospital treatment: 12 Lead EKG, Accucheck, Microfilm Machine Operator, Treatment Past Medical History PAST MEDICAL HISTORY: DM, HTN Surgical History: Hernia Repair Family History Family History: Reviewed,noncontributory to illness Social History Smoker: Cigarettes, Greater Than 1 Pack/Day Alcohol: Occasionally Drugs: Denies Drug Use Lives In: Home All Other Systems: Reviewed and Negative (Comprehensive review of ssytems are negative unless stated in HPI) Physical Exam General Appearance: Mild Distress, Normal HEENT: Normal ENT Inspection, Pharynx Normal, TMs Normal Neck: Full Range of Motion, Non-Tender, Normal, Normal Inspection Respiratory: Chest Non-Tender, Lungs Clear, No Accessory Muscle Use, No Respiratory Distress, Normal Breath Sounds Cardiovascular: No Edema, No JVD, No Murmur, No Gallop, Normal Peripheral Pulses, Other (regular rhythm; boderline tachycardic rate ) Breast Exam: Deferred Gastrointestinal: No Organomegaly, Non Tender, No Pulsatile Mass, Normal Bowel Sounds, Soft Genitalia: Deferred Pelvic: Deferred Rectal: Deferred Extremities: No calf tenderness, Normal capillary refill, Normal inspection, Normal range of motion, Non-tender, No pedal edema Musculoskeletal : Apperance: Normal Neurologic: Alert, control operator flow coat II-XII nml as Tested, No Motor Deficits, Normal Affect, Normal Mood, No Sensory Deficits Cerebellar Function: Normal Reflexes: Normal Skin: Dry, Normal Color, Warm Lymphatic: No Adenopathy Was a procedure done? Was a procedure done?: No Differential Dx Considerations may include: hyperglycemia, DKA, electrolyte imbalance, dehydration, seizure, pseudoseizure, encephalopathy, among others X-Ray, Labs, Meds, VS Vital Signs Date Time Temp Pulse Resp B/P (MAP) Pulse Ox O2 Delivery O2 Flow Rate FiO2 12/30/24 19:30 98.7 100 18 209/107 (141) 100 98.7 12/30/24 19:30 100 18 100 Room Air* 0 21 12/30/24 19:00 98.6 110 18 204/100 (134) 100 98.6 12/30/24 19:00 110 18 100 Room Air* 0 21 12/30/24 18:29 98.2 113 18 232/119 100 98.2 Lab Test 12/30/24 19:46 12/30/24 19:39 12/30/24 18:58 9/24/25 18:56 Range/Units POC Glucose 426 *H 441 *H 466 *H 70-106 mg/dl White Blood Count 17.0 H 4.4-10.8 10^3/uL Red Blood Count 4.23 L 4.5-5.90 10^6/uL Hemoglobin 12.4 L 13.5-17.5 g/dL Hematocrit 36.7 L 41.0-53.0 % Mean Corpuscular Volume 86.8 80.0-100.0 fL Mean Corpuscular Hemoglobin 29.2 28.0-32.0 pg Mean Corpuscular Hemoglobin Concent 33.7 32.0-36.0 g/dL Red Cell Distribution Width 13.7 11.8-14.3 % Platelet Count 362 140-450 10^3/uL Mean Platelet Volume 8.7 6.9-10.8 fL Neutrophils (%) (Auto) 87.8 H 37.0-80.0 % Lymphocytes (%) (Auto) 6.7 L 10.0-50.0 % Monocytes (%) (Auto) 5.3 0.0-12.0 % Eosinophils (%) (Auto) 0.0 0.0-7.0 % Basophils (%) (Auto) 0.2 0.0-2.0 % Neutrophils # (Auto) 15.0 H 1.6-8.6 10 ^3/uL Lymphocytes # (Auto) 1.1 0.4-5.4 10 ^3/uL Monocytes # (Auto) 0.9 0-1.3 10 ^3/uL Eosinophils # (Auto) 0 0-0.8 10 ^3/uL Basophils # (Auto) 0 0-0.2 10 ^3/uL Nucleated Red Blood Cells 0.0 % Sodium Level 135 L 136-145 mmol/L Potassium Level 3.7 3.5-5.1 mmol/L Chloride Level 97 L 98-107 mmol/L Carbon Dioxide Level 16 L 20-31 mmol/L Anion Gap 22 H 5-15 Blood Urea Nitrogen 49 H 9-23 mg/dL Creatinine 2.09 H 0.700-1.30 mg/dL Glomerular Filtration Rate Calc 43 >90 mL/min BUN/Creatinine Ratio 23.4 H 10.0-20.0 Serum Glucose 440 *H 74-106 mg/dL Calcium Level 8.2 L 8.7-10.4 mg/dL Magnesium Level 2.4 1.6-2.6 mg/dL Total Bilirubin 0.6 0.2-1.0 mg/dL Aspartate Amino Transferase (AST) 69 H 13-40 U/L Alanine Aminotransferase (ALT) 65 H 7-40 U/L Alkaline Phosphatase 70 46-116 U/L Total Protein 4.7 L 5.7-8.2 g/dL Albumin 2.7 L 3.2-4.8 g/dL Beta-Hydroxybutyric Acid > 4.500 H < 0.4 mmol/L Plasma/Serum Blood Alcohol < 3.0 <10 mg/dL Test 12/30/24 18:55 Range/Units Blood Gas Specimen Type Venous Blood Gas Sample Site Vbg - n/a Blood Gas Patient Temperature 37.0 Arterial Blood Date Drawn [id number] Reid Test N/a Venous Blood pH 7.572 *H 7.320-7.430 Venous Blood pCO2 at Patient Temp 18.8 L 38.0-54.0 mmHg Venous Blood pO2 at Patient Temp < 36.5 23.0-48.0 mmHg Venous Blood HCO3 16.9 L 22.0-29.0 mmol/L Venous Blood Base Excess -2.3 L -2.0-3.0 mmol/L Blood Gas Modality Vbg - n/a FiO2 % 21.0 Blood Gas Critical Value Read Back Yes Blood Gas Notified Whom lee Devi md Blood Gas Notified Time [id number] Blood Gas Notified By adrien Avelar, electric power machine operator Current Medications Medications (Trade) Dose Ordered Sig/Laurence Route Start Time Stop Time Status Last Admin Sodium Chloride 1,000 ml @ 1,000 mls/hr Q1H ONCE IVB 12/30/24 18:45 12/30/24 19:44 DC 12/30/24 19:43 Insulin Human Regular (InsuLIN R) 6 units ONCE ONCE SC 12/30/24 18:45 12/30/24 18:48 DC 12/30/24 19:57 Lorazepam (Ativan Inj) 1 mg ONCE ONCE IV 12/30/24 18:45 12/30/24 18:48 DC 12/30/24 19:12 Levetiracetam 100 ml @ 400 mls/hr ONCE ONCE IV 12/30/24 18:45 12/30/24 18:59 DC 12/30/24 19:02 Ondansetron HCl (Zofran) 4 mg ONCE ONCE IV 12/30/24 19:45 12/30/24 19:46 DC 12/30/24 19:[address] [address] Ph: [phone] DIAGNOSTIC IMAGING Diagnostic Imaging Report : [id number] Signed PATIENT: ABBY GIBBS ACCT: [id number] UNIT: [id number] : 1995 LOC: ER ROOM / BED: / AGE / SEX: 29 / M ADM STATUS: REG ER SERVICE [id number] ORDERING PHYSICIAN: VANI DEVI MD PROCEDURE(s): HWOCT - HEAD WITHOUT CONTRAST REASON: first time seizure ORDER NUMBER(s): [id number], ACCESSION NUMBER(s): [id number] EXAM: CT HEAD WITHOUT CONTRAST INDICATION: first time seizure TECHNIQUE: CT images of the head were obtained without administration of IV contrast. CT scans at this facility use dose modulation, iterative reconstruction, and/or weight based dosing when appropriate to reduce radiation dose to as low as reasonably achievable. COMPARISON: None FINDINGS: PARENCHYMA: No acute hemorrhage. There is no mass effect, midline shift, or herniation. There is preservation of the chisholm white differentiation. VENTRICLES: No hydrocephalus. EXTRA-AXIAL SPACES: No extra-axial fluid collections. OTHER: The bony structures are intact. Visualized portions of the paranasal sinuses and mastoid air cells are clear. Soft tissue swelling of the posterior scalp. IMPRESSION: 1. No CT evidence of an acute intracranial abnormality. 2. Soft tissue swelling of the posterior scalp. ATED BY: GLORIA RASHEED MD DICTATED DATE/TIME: 12/30/241939 SIGNED BY: GLORIA RASHEED MD SIGNED DATE/TIME: 12/30/241939 CC: [address] [address] Ph: [phone] DIAGNOSTIC IMAGING Diagnostic Imaging Report : [id number] Signed PATIENT: ABBY GIBBS ACCT: [id number] UNIT: [id number] : 1995 LOC: ER ROOM / BED: / AGE / SEX: 29 / M ADM STATUS: REG ER SERVICE [id number] ORDERING PHYSICIAN: VANI DEVI MD PROCEDURE(s): CXRP - CHEST PORTABLE REASON: SOB ORDER NUMBER(s): [id number], ACCESSION NUMBER(s): [id number] INDICATION: SOB TECHNIQUE: Frontal view of the chest. COMPARISON: CHEST TWO VIEWS ROUTINE on DOS: 12/28/20, CHEST XRAY 1 VIEW on DOS: 02/29/20 FINDINGS/IMPRESSION: The lungs are clear. The cardiomediastinal silhouette is unremarkable. No pleural effusion or pneumothorax. No acute osseous abnormality. ATED BY: BRIGHT CUETO MD DICTATED DATE/TIME: 12/30/241926 SIGNED BY: BRIGHT CUETO MD SIGNED DATE/TIME: 12/30/241926 CC: Time of 1ST Reevaluation: 19:20 Reevaluation 1ST: Unchanged Patient Education/Counseling: Treatment Family Education/Counseling: No Family Present SEPSIS Sepsis Screen Physician Orders Urinalysis (12/30/24 18:43) Chest Portable (12/30/24 18:43) Head Without Contrast (12/30/24 18:43) Drug Screen (12/30/24 18:43) Microfilm Machine Operator (12/30/24 18:43) Accucheck (12/30/24 18:43) Electrocardigram (12/30/24 18:43) Venous Blood Gas (12/30/24 18:43) Vital Signs Date Time Temp Pulse Resp B/P (MAP) Pulse Ox O2 Delivery O2 Flow Rate FiO2 12/30/24 19:30 98.7 100 18 209/107 (141) 100 98.7 12/30/24 19:30 100 18 100 Room Air* 0 21 12/30/24 19:00 98.6 110 18 204/100 (134) 100 98.6 12/30/24 19:00 110 18 100 Room Air* 0 21 12/30/24 18:29 98.2 113 18 232/119 100 98.2 Laboratory Tests Test 12/30/24 19:39 White Blood Count 17.0 10^3/uL (4.4-10.8) H Medications Medications Dose Ordered Sig/Laurence Route Start Time Stop Time Status Last Admin Dose Admin Insulin Human Regular 6 units ONCE ONCE SC 12/30/24 18:45 12/30/24 18:48 DC 12/30/24 19:57 Levetiracetam 100 ml @ 400 mls/hr ONCE ONCE IV 12/30/24 18:45 12/30/24 18:59 DC 12/30/24 19:02 Lorazepam 1 mg ONCE ONCE IV 12/30/24 18:45 12/30/24 18:48 DC 12/30/24 19:12 Ondansetron HCl 4 mg ONCE ONCE IV 12/30/24 19:45 12/30/24 19:46 DC 12/30/24 19:43 Sodium Chloride 1,000 ml @ 1,000 mls/hr Q1H ONCE IVB 12/30/24 18:45 12/30/24 19:44 DC 12/30/24 19:43 Departure 1 Departure Time of Disposition: 20:38 Impression: Primary Impression: Uncontrolled diabetes mellitus Additional Impressions: DKA (diabetic ketoacidosis) Nausea & vomiting First time seizure Acute renal injury Disposition: ADMITTED INPATIENT Admit to: ICU Condition: Guarded Discharged With: Self Comments 29-year-old male with a history of poorly controlled diabetes now with first- time seizure. On lab review his white blood cell count is elevated at 17. Mild anemia with H and H of 12 and 37. Acute renal injury with BUN creatinine elevated at 49 and 2.09. Hyperglycemia 444. Anion gap is elevated at 22. He is not acidotic on his blood gas. Beta hydroxybutyrate is elevated greater than 4.5. Patient was given IV fluids and insulin. His CT of the head showed no acute pathology. Patient will need to be admitted for first-time seizure, uncontrolled diabetes with acute renal injury and suspect early diabetic ketoacidosis. Critical Care Note Critical Care Time?: Yes (35 min-critical care time only) Critical care comment: Total critical care time: Approximately 36 minutes Due to a high probability of clinically significant, life threatening deterioration, the patient required my highest level of preparedness to intervene emergently and I personally spent this critical care time directly and personally managing the patient. This critical care time included obtaining a history; examining the patient; pulse oximetry; ordering and review of studies; arranging urgent treatment with development of a management plan; evaluation of patient's response to treatment; frequent reassessment; and, discussions with other providers. This critical care time was performed to assess and manage the high probability of imminent, life-threatening deterioration that could result in multi-organ failure. It was exclusive of separately billable procedures and treating other patients. Stability Stability form required: No Heart Score Heart Score: Heart Score Response (Comments) Value History N/A 0 EKG N/A 0 Age N/A 0 Risk Factors N/A 0 Troponin N/A 0 Total 0 I personally scribed for VANI DEVI MD ([email or web address]) on 12/30/24 at 18:49. Electronically submitted by Palmer Wiseman ([email or web address]). I personally scribed for VANI DEVI MD ([email or web address]) on 12/30/24 at 20:32. Electronically submitted by Palmer Wiseman ([email or web address]). VANI DEVI MD Dec 30, 2024 18:49
[2024-12-30 19:00] VITALS: PULSE 110; RESP 18; O2SAT 100
[2024-12-30] MEDS: levETIRAcetam 1000 mg/100ml 100 ML IV ONE (19:02)
[2024-12-30] MEDS: LORazepam 2MG/ML-1ML VIAL IV ONE (19:12)
[2024-12-30 19:30] VITALS: PULSE 100; RESP 18; O2SAT 100
--- NOTE | 2024-12-30 19:30 | DVH ---
INDICATION: SOB TECHNIQUE: Frontal view of the chest. COMPARISON: CHEST TWO VIEWS ROUTINE on DOS: 12/28/20, CHEST XRAY 1 VIEW on DOS: 02/29/20 FINDINGS/IMPRESSION: The lungs are clear. The cardiomediastinal silhouette is unremarkable. No pleural effusion or pneumo thorax. No acute osseous abnormality.
--- NOTE | 2024-12-30 19:42 | DVH ---
EXAM: CT HEAD WITHOUT CONTRAST INDICATION: first time seizure TECHNIQUE: CT images of the head were obtained without administration of IV contrast. CT scans at [facility] facility use dose modulation, iterative reconstruction, and/or weight based dosing when appropriate to reduce radiation dose to as low as reasonably achievable. COMPARISON: None FINDINGS: PARENCHYMA: No acute hemorrhage. There is no mass effect, midline shift, or herniation. There is pres ervation of the chisholm white differentiation. VENTRICLES: No hydrocephalus. EXTRA-AXIAL SPACES: No extra-axial fluid collections. OTHER: The bony structures are intact. Visualized portions of the paranasal sinuses and mastoid air cells are clear. Soft tissue swelling of the posterior scalp. IMPRESSION: 1. No CT evidence of an acute intracranial abnormality. 2. Soft tissue swelling of the posterior scalp.
[2024-12-30] MEDS: ONDANSETRON HCL 4 MG/2 ML VIAL IV ONE (19:43)
[2024-12-30] MEDS: SODIUM CHLORIDE 0.9% 1,000 ML IVB ONE (19:43)
[2024-12-30] MEDS: InsuLIN REG 1unit/0.01ml Soln (100units/ml) SC ONE (19:57)
[2024-12-30 20:02] LABS: Hematocrit 36.7 % (41.0-53.0); Hemoglobin 12.4 g/dL (13.5-17.5); Mean Corpuscular Hemoglobin 29.2 pg (28.0-32.0); Mean Corpuscular Volume 86.8 fL (80.0-100.0); Nucleated Red Blood Cells % 0.0 %
[2024-12-30 20:15] LABS: Alkaline Phosphatase 70 U/L (46-116); Anion Gap 22 (5-15); BUN/Creatinine Ratio 23.4 (10.0-20.0); Magnesium 2.4 mg/dL (1.6-2.6); Potassium 3.7 mmol/L (3.5-5.1)
[2024-12-30 20:16] LABS: Bilirubin, Total 0.6 mg/dL (0.2-1.0)
[2024-12-30 20:22] LABS: Alanine Aminotransferase 65 U/L (7-40); Albumin 2.7 g/dL (3.2-4.8); Blood Urea Nitrogen 49 mg/dL (9-23); Calcium 8.2 mg/dL (8.7-10.4); Carbon Dioxide 16 mmol/L (20-31); Chloride 97 mmol/L (98-107); Sodium 135 mmol/L (136-145); Total Protein 4.7 g/dL (5.7-8.2)
[2024-12-30 20:26] LABS: Glucose 440 mg/dL (74-106)
[2024-12-30] MEDS: hydrALAZINE HCL 20 MG/ML VL IV ONE (21:01)
[2024-12-30 22:59] LABS: Chloride 105 mmol/L (98-107); Sodium 141 mmol/L (136-145)
[2024-12-30 23:00] LABS: Anion Gap 14 (5-15); Carbon Dioxide 22 mmol/L (20-31)
[2024-12-30 23:01] LABS: Calcium 7.2 mg/dL (8.7-10.4); Potassium 2.6 mmol/L (3.5-5.1)
[2024-12-30 23:05] LABS: BUN/Creatinine Ratio 21.2 (10.0-20.0)
[2024-12-30 23:06] LABS: Blood Urea Nitrogen 41 mg/dL (9-23); Glucose 212 mg/dL (74-106)
[2024-12-30] MEDS: POTASSIUM CHL 20 Meq TABLET PO ONE (23:20)
[2024-12-31] MEDS: POTASSIUM CHL 20MEQ/100ML 100 ML IV ONE (00:21)
[2024-12-31] MEDS: ONDANSETRON HCL 4 MG/2 ML VIAL IV ONE (04:34)
[2024-12-31] MEDS: hydrALAZINE HCL 20 MG/ML VL IV ONE (04:37)
[2024-12-31] MEDS: LORazepam 2MG/ML-1ML VIAL IV ONE (04:58)
[2024-12-31 08:00] VITALS: PULSE 108; RESP 18; O2SAT 99
[2024-12-31 08:30] VITALS: BP 156/90; PULSE 108; RESP 18; TEMP 98.4; O2SAT 99
== END 2024-12-31 08:41 | disposition short-term general hospital (02) ==
LOC: ER 18:26 → EDBD 18:26 → ER 12-31 08:41
DX: E11.10 Type 2 diabetes mellitus with ketoacidosis without coma (principal); N17.9 Acute kidney failure, unspecified; R56.9 Unspecified convulsions; R11.2 Nausea with vomiting, unspecified; F17.210 Nicotine dependence, cigarettes, uncomplicated; I10 Essential (primary) hypertension
CPT/HCPCS: 36415; 36600; 70450; 71045; 80048; 80053; 80320; 82010; 82805; 82947; 83735; 85025; 96361; 96365; 96366; 96375; 96376; 99285; J0360; J1815; J1953; J2060; J2405; J3480; J7030; 82962